=== PATIENT | male | born 1940 | race Caucasian/White ===

== ENCOUNTER 2017-06-12 21:04 | Emergency (ER) | payer MEDICARE, OTHER ==
[2017-06-12] MEDS ORDERED: HALOPERIDOL LACTATE INJ 5 MG/ML VIAL IM ONE ×2 (22:04→22:05)
--- NOTE | 2017-06-12 23:16 | CT ---
EXAM DATE: 06/12/2017 9:25 PM [employer]. PROCEDURE: CT HEAD WITHOUT IV CONTRAST. INDICATION: Agitation. COMPARISON: 10/07/2015. TECHNIQUE: Axial CT images of the head were acquired without intravenous contrast. This exam was performed according to our departmental dose-optimization program which includes use of Automated Exposure Control, adjustment of the mA and/or kV according to patient size and/or use of iterative reconstruction technique. FINDINGS: No acute intracranial hemorrhage. Focal subcortical hypoattenuation involving the right occipital lobe, image 48 series 5. No mass effect or midline shift. Scattered white matter hypoattenuation compatible with mild chronic microvascular angiopathy. Moderate generalized brain volume loss. Unremarkable orbits. The paranasal sinuses are well aerated. Mastoid air cells are clear. Intact calvarium. IMPRESSION: Focal hypoattenuation within the right occipital lobe may be seen with age indeterminate infarct. If there is concern for acute ischemia, consider MRI brain for further evaluation. Chronic senescent changes. Electronically signed by: Rodrigo Chambers MD 06/12/2017 11:15 PM [facility]
[2017-06-13] MEDS ORDERED: HALOPERIDOL LACTATE INJ 5 MG/ML VIAL IM ONE (00:39)
[2017-06-13] MEDS ORDERED: QUEtiapine FUMARATE 25 MG TAB PO ONE (02:09)
--- NOTE | 2017-06-13 02:14 | ED.PDOC ---
History of Present Illness - General Chief Complaint: Behavioral / Psych Stated Complaint: AMS Time Seen by Provider: 06/12/17 21:06 Source: patient, EMS notes reviewed, family, correction records Exam Limitations: clinical condition - History of Present Illness Initial Comments: the patient is a 76-year-old maleseen in the emergency room upon request of staff at the [facility] for requested MR evaluation. The patient has been at the facility for approximately 5 days. Apparently he has not been getting his medications because he has been refusing them. Over the last day or so he has become extremely aggressive. The staff are scared of him because he has apparently hitting kick them. Reportedly he is not welcome back there. They did manage to get a Phenergan suppository and him which did make him DOS all 4 hours so. During the workup here however he became severely agitated again and did require for people to restrain him. The patient does have severe dementia and is unable to effectively communicate. Clinically I see no evidence of infection. He is moving all extremities well. He does have a history of vascular dementia. He has apparently had no recent trauma. No fevers. Timing/Duration: unsure Severity: severe Improving Factors: nothing Worsening Factors: nothing Allergies/Adverse Reactions: Allergies NO KNOWN ALLERGY Allergy (Verified 10/15/15 06:47) Home Medications: Ambulatory Orders Bifidobacterium Infantis [Align] 4 mg PO TID #42 cap 07/13/14 Clindamycin HCl [Cleocin] 300 mg PO TID #15 cap 07/13/14 Ipratropium/Albuterol [Duoneb] 3 ml INH TID #30 vial 07/13/14 Lisinopril 20 mg PO BEDTIME #30 tab 07/13/14 ALPRAZolam [Xanax] 0.5 mg PO Q6H PRN #10 tab 10/10/15 Clonazepam 0.5 mg PO BEDTIME 10/15/15 Risperidone 0.5 mg PO BEDTIME PRN 10/15/15 Review of Systems - Review of Systems Review of Systems: 06/13/17 02:14 the patient is unable to give a review of systems secondary to dementia Past Medical History (General) - Patient Medical History Hx Seizures: No Hx Stroke: No Hx Dementia: Yes Hx Asthma: No Hx of COPD: No Hx Cardiac Disorders: No Hx Congestive Heart Failure: Yes Hx Pacemaker: No Hx Hypertension: Yes Hx Thyroid Disease: No Hx Diabetes: No Hx Gastroesophageal Reflux: Yes Hx Renal Disease: No Hx Cancer: No Hx of HIV: No Hx Hepatitis C: No Hx MRSA: No Surgical History: other - Vaccination History Hx Tetanus, Diphtheria Vaccination: No Hx Influenza Vaccination: No Hx Pneumococcal Vaccination: No - Social History Hx Tobacco Use: No Hx Alcohol Use: No Hx Substance Use: No Hx Substance Use Treatment: No Hx Depression: Yes Hx Physical Abuse: No Hx Emotional Abuse: No - Activities of Daily Living Snf/Assisted Living (if applicable):: [facility] - Triage Comment ED Triage Comment: Presents to ER--[facility]--from [facility]--- staff at [facility] states pt is dangerous and violent and physical also. Pt non- verbal. Was given Phernergan 50mg supp R [employer] to ER--Pt is calm now in ED. Family Medical History - Family History Father Family History: Unknown Living Status: Physical Exam - Physical Exam General Appearance: Alert, Anxious Eye Exam: bilateral normal Ears, Nose, Throat: hearing grossly normal - as best can be assessed, normal ENT inspection Neck: full range of motion, supple Respiratory: lungs clear, normal breath sounds, no respiratory distress, no accessory muscle use Cardiovascular/Chest: normal peripheral pulses, no edema Peripheral Pulses: radial,right: 2+, radial,left: 2+, dorsalis pedis,right: 2+, dorsalis pedis,left: 2+ Gastrointestinal/Abdominal: non tender, soft Rectal Exam: deferred Back Exam: normal inspection, no CVA tenderness Extremity: normal range of motion, non-tender, normal inspection, no pedal edema , normal capillary refill 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 Skin Exam: normal color Comments: Vital Signs - 24 hr 06/12/17 06/12/17 06/13/17 21:16 22:04 01:03 Temperature 98.1 F 99.1 F Pulse Rate [ 69 79 98 H monitor] Respiratory 20 20 20 Rate Blood Pressure 144/71 104/63 155/89 [monitor] O2 Sat by Pulse 98 95 96 Oximetry 06/13/17 01:04 Temperature Pulse Rate [ 67 monitor] Respiratory 20 Rate Blood Pressure 118/64 [monitor] O2 Sat by Pulse 98 Oximetry Progress - Progress Progress: 06/13/17 02:16 the patient is a 76-year-old male with advanced dementia who was sent out for psychiatric evaluation secondary to aggressive behavior. The patient is apparently no longer welcome back at the long-term care facility due to aggressive behavior. I see no evidence of any new trauma or infection in this patient as a source for his behavior. I believe he is becoming more aggressive secondary to staff being unable to get his psychiatric medication doses down. the patient was given a dose of Haldol and Ativan here. He is resting comfortably. He is receiving a dose of his morning Seroquel. His son will pick him up and assume his care. Given the difficulty of getting the patient to take oral medications, something along the lines of depo- Haldol and topical Ativan may prove beneficial for this patient. given his level of dementia syndrome of the less essential oral medications may also need to be discontinued in favor of quality of life rather than longevity. these things need to be discussed with his primary care doctor and psychiatrist to formulate a more functional long-term plan of care for the patient. ER warnings were given. - Results/Orders Results/Orders: Laboratory Results - last 24 hr 06/12/17 06/12/17 22:43 22:43 WBC 6.7 RBC 3.99 L Hgb 11.8 L Hct 34.6 L MCV 86.8 MCH 29.5 MCHC 34.1 RDW 13.9 Plt Count 473 H MPV 7.6 Absolute Neuts (auto) 4.30 Absolute Lymphs (auto) 1.50 Absolute Monos (auto) 0.70 Absolute Eos (auto) 0.20 Absolute Basos (auto) 0.10 Neutrophils % 63.8 Lymphocytes % 21.7 Monocytes % 9.9 H Eosinophils % 3.5 Basophils % 1.1 Sodium 140 Potassium 3.7 Chloride 106 Carbon Dioxide 23 Anion Gap 14.7 BUN 21 H Creatinine 1.41 H BUN/Creatinine Ratio 14.9 Random Glucose 97 Serum Osmolality 282.3 Calcium 9.7 Total Bilirubin 0.8 AST 17 ALT 11 Alkaline Phosphatase 64 Serum Total Protein 6.8 Albumin 3.9 Globulin 2.9 Albumin/Globulin Ratio 1.3 CT scan of the head shows no definitive acute intracranial pathology. Departure - Departure Clinical Impression: Aggression Dementia Qualifiers: Dementia type: unspecified type Dementia behavioral disturbance: with behavioral disturbance Qualified Code(s): F03.91 - Unspecified dementia with behavioral disturbance Disposition: Discharge to Home or Self Care Condition: Fair Departure Forms: ED Discharge - Pt. Copy, Patient Portal Self Enrollment Instructions: Vascular Dementia Diet: regular diet Activity: increase activity as tolerated Referrals: FEROZ DE JESUS [Primary Care Provider] - 1-2 Days Home Medications: Ambulatory Orders Bifidobacterium Infantis [Align] 4 mg PO TID #42 cap 07/13/14 Clindamycin HCl [Cleocin] 300 mg PO TID #15 cap 07/13/14 Ipratropium/Albuterol [Duoneb] 3 ml INH TID #30 vial 07/13/14 Lisinopril 20 mg PO BEDTIME #30 tab 07/13/14 ALPRAZolam [Xanax] 0.5 mg PO Q6H PRN #10 tab 10/10/15 Clonazepam 0.5 mg PO BEDTIME 10/15/15 Risperidone 0.5 mg PO BEDTIME PRN 10/15/15 Additional Instructions: the patient is a 76-year-old male with advanced dementia who was sent out for psychiatric evaluation secondary to aggressive behavior. The patient is apparently no longer welcome back at the long-term care facility due to aggressive behavior. I see no evidence of any new trauma or infection in this patient as a source for his behavior. I believe he is becoming more aggressive secondary to staff being unable to get his psychiatric medication doses down. the patient was given a dose of Haldol and Ativan here. He is resting comfortably. He is receiving a dose of his morning Seroquel. His son will pick him up and assume his care. Given the difficulty of getting the patient to take oral medications, something along the lines of depo- Haldol and topical Ativan may prove beneficial for this patient. given his level of dementia syndrome of the less essential oral medications may also need to be discontinued in favor of quality of life rather than longevity. these things need to be discussed with his primary care doctor and psychiatrist to formulate a more functional long-term plan of care for the patient. ER warnings were given.
[2017-06-13 06:04] VITALS: TEMP 96.2
[2017-06-13 10:41] VITALS: BP 96/55; O2SAT 96
== END 2017-06-13 08:15 | disposition home or self-care (01) ==
LOC: ER 21:04
DX: F03.91 Unspecified dementia, unspecified severity, with behavioral disturbance (principal); I11.0 Hypertensive heart disease with heart failure; I50.9 Heart failure, unspecified; K21.9 Gastro-esophageal reflux disease without esophagitis; Z79.899 Other long term (current) drug therapy
CPT/HCPCS: 36415; 70450; 80053; 85025; 96372; 99284; J1630; J2060